=== PATIENT | male | born 1980 | race Caucasian/White ===

== ENCOUNTER 2016-03-16 15:13 | Emergency (ER) | payer OTHER ==
[~2016-03-16] VITALS: Ht 160 cm; Wt 57.9 kg
[2016-03-16 15:25] VITALS: BP 121/82; PULSE 83; TEMP 37.4; O2SAT 99; Ht 160 cm; Wt 57.9 kg
--- NOTE | 2016-03-16 16:37 | DIAGNOSTIC IMAGING REPORT ---
RIGHT THUMB 3 VIEWS CLINICAL HISTORY: Right thumb pain and swelling. Recent laceration. FINDINGS: 3 views of the right thumb are obtained. Comparison is made to study dated 06/16/2009. The skeletal structures are well mineralized. No fracture is seen. The first metacarpophalangeal and interphalangeal joints are well-maintained. No radiodense foreign body is seen. No significant soft tissue abnormality is identified. IMPRESSION: 1. No acute bony abnormality is identified in the right thumb. 2. No radiodense foreign body is seen. Electronically signed by: Willy Vargas M.D. 03/16/2016 4:35 PM Dictated Date/Time: 03/16/2016 4:34 PM
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
== END 2016-03-16 17:48 | disposition home or self-care (01) ==
LOC: C.EDB 15:16 → C.EDD 17:48
DX: M79.644 Pain in right finger(s) (principal); Z72.0 Tobacco use

== ENCOUNTER 2017-07-07 10:14 | Emergency (ER) | payer OTHER ==
[~2017-07-07] VITALS: Ht 160 cm; Wt 57.5 kg
[2017-07-07 10:21] VITALS: TEMP 36.6; Ht 160 cm; Wt 57.5 kg
[2017-07-07] MEDS ORDERED: KETOROLAC TROMETHAMINE 30 MG/ML VIAL IV STA (10:37)
[2017-07-07] MEDS ORDERED: SODIUM CHLORIDE 0.9% 1000ML 1,000 ML IV STA (10:37)
[2017-07-07 10:40] LABS: BASO % 0.1 %; BASO ABS # 0.01 K/uL (0-0.2); EOS % 1.1 %; EOS ABS # 0.12 K/uL (0-0.5); HEMATOCRIT 43.1 % (42-52); HEMOGLOBIN 15.4 g/dL (14.0-18.0); IG# 0.03 K/uL (0.00-0.02); LYMPH % 26.3 %; LYMPH ABS # 2.98 K/uL (1.2-3.4); MEAN CELL VOLUME 82.7 fL (80-100); MEAN CORPUSCULAR HEMOGLOBIN 29.6 pg (25-34); MEAN CORPUSCULAR HGB CONC 35.7 g/dl (32-36); MEAN PLATELET VOLUME 10.5 fL (7.4-10.4); MONO % 6.9 %; MONO ABS # 0.78 K/uL (0.11-0.59); NEUT % 65.3 %; PLATELET COUNT 225 K/uL (130-400); RED CELL DISTRIBUTION WIDTH CV 14.6 % (11.5-14.5); RED CELL DISTRIBUTION WIDTH SD 44.9 fL (36.4-46.3); WHITE BLOOD COUNT 11.32 K/uL (4.8-10.8)
--- NOTE | 2017-07-07 11:03 | DIAGNOSTIC IMAGING REPORT ---
CHEST ONE VIEW PORTABLE CLINICAL HISTORY: left chest pain chest pain. Dyspnea. COMPARISON STUDY: 08/24/2014 FINDINGS: The bones soft tissues and hemidiaphragms are normal. The cardiomediastinal silhouette is normal. The lungs are clear. The pulmonary vasculature is normal. IMPRESSION: Negative chest. The above report was generated using voice recognition software. It may contain grammatical, syntax or spelling errors. Electronically signed by: Aurelio Singh M.D. 07/07/2017 11:01 AM Dictated Date/Time: 07/07/2017 11:01 AM
[2017-07-07 11:04] LABS: ALBUMIN 4.2 gm/dl (3.4-5.0); CREATININE 0.92 mg/dl (0.60-1.40); POTASSIUM 3.8 mmol/L (3.5-5.1)
[2017-07-07 11:07] LABS: TOTAL PROTEIN 7.9 gm/dl (6.4-8.2)
--- NOTE | 2017-07-07 11:47 | DIAGNOSTIC IMAGING REPORT ---
ABD/PELVIS WITHOUT FOR STONE CT DOSE: 249.26 mGycm HISTORY: Flank pain right flank pain TECHNIQUE: Multiaxial CT images of the abdomen and pelvis were performed without the use of intravenous and oral contrast according to the standard department stone protocol. A dose lowering technique was utilized adhering to the principles of ALARA. COMPARISON STUDY: 06/14/2014 FINDINGS: Lung bases are clear. Bilateral nephrocalcinosis unchanged in the prior study. No evidence for an obstructing urinary tract calculus. Bowel pattern is nonobstructive. Bladder is midline. There are no contained calcifications. The appendix is seen in part and appears unremarkable. No significant bowel distention. IMPRESSION: 1. Bilateral nonobstructing renal nephrocalcinosis. 2. Otherwise negative study with no evidence for an obstructing urinary tract calculus. The above report was generated using voice recognition software. It may contain grammatical, syntax or spelling errors. Electronically signed by: Aurelio Singh M.D. 07/07/2017 11:45 AM Dictated Date/Time: 07/07/2017 11:38 AM
[2017-07-07 12:37] VITALS: BP 109/71; PULSE 55; O2SAT 99
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
== END 2017-07-07 12:42 | disposition home or self-care (01) ==
LOC: C.EDB 10:15 → C.EDA 12:42
DX: N20.0 Calculus of kidney (principal); R07.2 Precordial pain; F17.210 Nicotine dependence, cigarettes, uncomplicated; Z87.442 Personal history of urinary calculi; Z91.040 Latex allergy status